=== PATIENT | male | born 1960 ===

== ENCOUNTER 2017-08-22 06:16 | Day surgery (SDC) | payer OTHER ==
[2017-08-18 08:24] VITALS: BMI 37.0
[2017-08-22 07:11] LABS: BASO # 0.02 K/mm3 (0.0-2.0); BASO % 0.2 % (0.0-3.0); EOS # 0.3 (0.0-0.7); EOS % 3.9 % (1.5-5.0); GRAN % 60.4 % (50.0-68.0); HEMOGLOBIN 12.9 g/dL (14.0-18.0); LYMPH # 2.2 (1.2-3.4); LYMPH % 26.8 % (22.0-35.0); MEAN CELL VOLUME 91.9 fl (80.0-105.0); MEAN CORPUSCULAR HEMOGLOBIN 29.9 pg (25.0-35.0); MEAN CORPUSCULAR HGB CONC 32.5 g/dl (31.0-37.0); MEAN PLATELET VOLUME 10.1 fl (7.0-11.0); MONO # 0.7 (0.1-0.6); MONO % 8.7 % (1.0-6.0); RBC 4.32 10^6/uL (3.5-6.1); RED CELL DISTRIBUTION WIDTH 13.2 % (11.5-14.5); WHITE BLOOD COUNT 8.3 10^3/ul (4.5-11.0)
[2017-08-22] MEDS ORDERED: Adenosine 90 mg/30mL IV ONE (07:17)
[2017-08-22] MEDS ORDERED: Lidocaine 2% Inj (20ml) ONE (07:17)
[2017-08-22] MEDS ORDERED: Phenylephrine 10 mg/ml Inj ONE (07:17)
[2017-08-22] MEDS ORDERED: Midazolam 2 MG/2 ML VIAL ONE ×2 (07:18→07:43)
[2017-08-22] MEDS ORDERED: Verapamil 2 ML ONE (07:18)
[2017-08-22] MEDS ORDERED: Iodixanol 320 MG/ML 200 ML BOTTLE IV ONE (07:19)
[2017-08-22] MEDS ORDERED: Iodixanol 320 MG/ML 100 ML BOTTLE IV ONE ×3 (07:19→09:16)
[2017-08-22] MEDS ORDERED: Iohexol 350mgl/ml 50 ML ONE (07:19)
[2017-08-22] MEDS ORDERED: Nitroglycerin 50mg in D5W 50 MG/250 ML BOTTLE IV ONE (07:19)
[2017-08-22 07:20] VITALS: RESP 18
[2017-08-22 07:24] LABS: INR 0.95 (0.93-1.08); PARTIAL THROMBOPLASTIN TIME 26.7 Seconds (25.1-36.5); PROTHROMBIN TIME 10.9 SECONDS (9.4-12.5)
[2017-08-22 07:36] LABS: BLOOD UREA NITROGEN 17 mg/dL (7-21); CALCIUM 9.3 mg/dL (8.4-10.5); GFR AFRICAN-AMERICAN > 60; GFR NON-AFRICAN AMERICAN > 60; HDL CHOLESTEROL 46 mg/dL (29-60)
[2017-08-22 07:47] LABS: LDL CHOLESTEROL 52 mg/dL (0-129)
[2017-08-22] MEDS ORDERED: DiphenhydrAMINE 50 mg/ml Inj ONE (08:15)
[2017-08-22] MEDS ORDERED: Bacitracin 500 Units/gm Oint Foilpak UD TOP ONE (09:50)
[2017-08-22] MEDS ORDERED: Cholecalciferol 1,000 INTLU TAB PO SCH (10:00)
[2017-08-22] MEDS ORDERED: Omega-3-Acid Ethyl Esters 1 GM Cap PO SCH (10:00)
[2017-08-22] MEDS ORDERED: [UNRECOGNIZED DRUG - OTHER] SQ SCH (10:00)
[2017-08-22] MEDS ORDERED: Metoprolol Succinate 100 mg XL Tab PO SCH (10:00)
[2017-08-22] MEDS ORDERED: Insulin Lispro 1 UNITS/0.01 ML SC SCH (11:30)
[2017-08-22 11:38] VITALS: TEMP 98.1
--- NOTE | 2017-08-22 12:16 | CARD ---
APPROVED REPORT EKG Measurement Heart [id number] FL 250P57 [id number] <Conclusion> Sinus rhythm with 1st degree AV block Otherwise normal ECG
[2017-08-22 12:18] VITALS: PULSE 94
[2017-08-22 13:05] VITALS: BP 150/85; O2SAT 97
[2017-08-22] MEDS ORDERED: Bacitracin 500 Units/gm Oint Foilpak UD ONE (13:21)
--- NOTE | 2017-08-22 14:21 | CARDCATH ---
PROCEDURE DATE: 08/22/2017 INDICATION: Mr. Lee Allen is a 56-year-old male with past medical history significant for hypertension, diabetes, hyperlipidemia, obesity, status post CABG in 2012, referred to me for evaluation of symptoms of dyspnea on exertion and chest pain. The patient underwent a stress test showing evidence of ischemia in the anteroapical wall, therefore was brought to the [facility] field laborer for further evaluation and treatment. PROCEDURES PERFORMED: 1. Left heart catheterization with selective left and right coronary angiogram via left distal radial approach. 2. Left radial arterial access, selective SAHA angiogram, selective vein graft to RCA angiogram. ANGIOGRAPHIC FINDINGS: Left main large-sized vessel bifurcates into LAD and circumflex. Left circumflex 100% occluded. LAD large-sized vessel has proximal 55% stenosis, diagonal 100% occluded, LAD diffusely diseased. RCA mid 100% occluded, vein graft to right PDA patent. SAHA attached to the chest wall. The other vein grafts not identified. IMPRESSION: Severe ute triple vessel disease. RECOMMENDATIONS: 1. Continue aggressive medical management, risk factor modification. 2. Add Ranexa, nitrates, and further titration based on clinical response to therapy. Adalberto Payne MD
[2017-08-23] MEDS ORDERED: Insulin Lispro 1 UNITS/0.01 ML SC SCH (07:30)
== END 2017-08-22 14:30 | disposition home or self-care (01) ==
LOC: CATH 06:16
PROVIDERS: ATTEND Internal Medicine Interventional Cardiology
DX: I25.110 Atherosclerotic heart disease of native coronary artery with unstable angina pectoris (principal); I10 Essential (primary) hypertension; E78.5 Hyperlipidemia, unspecified; E11.9 Type 2 diabetes mellitus without complications; G47.33 Obstructive sleep apnea (adult) (pediatric); E66.9 Obesity, unspecified; I25.2 Old myocardial infarction; Z87.891 Personal history of nicotine dependence; Z79.4 Long term (current) use of insulin; Z68.37 Body mass index [BMI] 37.0-37.9, adult; Z95.1 Presence of aortocoronary bypass graft; Z98.61 Coronary angioplasty status
CPT/HCPCS: 36415; 80048; 80061; 85025; 85610; 85730; 86850; 86900; 93005; 93455; 93567; 99152; 99153; C1769 ×2; C1887 ×2; C1894; J0153; J1200; J1644 ×2; J2250; J3010; J7040; Q9966; Q9967